=== PATIENT | male | born 1970 | race Two or more races ===

== ENCOUNTER 2017-02-16 20:58 | Emergency (ER) | payer MEDICAID ==
[~2017-02-16] VITALS: Ht 162.6 cm; Wt 78.0 kg
[2017-02-16 21:43] LABS: Basophils # (auto) 0.1 uL; Basophils % (auto) 0.7 % (0.0-2.0); Eosinophils # (auto) 0.3 uL; Hematocrit 41.7 % (41.0-53.0); Hemoglobin 14.7 g/dL (13.5-17.5); Lymphocytes % (auto) 26.2 % (10.0-50.0); Mean Corpuscular Hemoglobin 30.8 pg (28.0-32.0); Mean Corpuscular Hgb Conc. 35.2 g/dL (32.0-36.0); Mean Corpuscular Volume 87.7 fL (80.0-100.0); Mean Platelet Volume 8.1 fL (6.9-10.8); Monocytes # (auto) 0.8 uL; Monocytes % (auto) 10.4 % (0.0-12.0); Neutrophils # (auto) 4.4 uL; Neutrophils % (auto) 58.7 % (37.0-80.0); Nucleated Red Blood Cells % 0.1 %; Platelet Count (auto) 193 10^3/uL (140-450); Red Cell Distribution Width 12.8 % (11.8-14.3); White Blood Cell 7.6 10^3/uL (4.4-10.8)
[2017-02-16 21:50] LABS: Acetaminophen < 2.0 ug/mL (10-30); Salicylate < 1.7 mg/dL (2.8-20.0)
[2017-02-16 21:55] LABS: Albumin 3.7 g/dL (3.4-5.0); Alkaline Phosphatase 82 U/L (45-117); Anion Gap 5 (5-15); Aspartate Aminotransferase 17 U/L (15-37); BUN/Creatinine Ratio 16.3; Bilirubin, Total 0.3 mg/dL (0.2-1.0); Blood Urea Nitrogen 17 mg/dL (7-18); Calcium 8.1 mg/dL (8.5-10.1); Carbon Dioxide 28 mmol/L (21-32); Chloride 107 mmol/L (98-107); GFR African American 98 mL/min; GFR Non-African American 81 mL/min; Glucose 90 mg/dL (74-106); Potassium 3.9 mmol/L (3.5-5.1); Sodium 140 mmol/L (136-145); Total Protein 7.6 g/dL (6.4-8.2)
[2017-02-17] MEDS ORDERED: methylPREDNISolone SOD SUCC 125 MG/2 ML VL IV ONE (00:45)
[2017-02-17 02:46] VITALS: BP 132/89
== END 2017-02-17 02:46 | disposition home or self-care (01) ==
LOC: ER 21:02
DX: G51.0 Bell's palsy (principal)
CPT/HCPCS: 36415; 70450; 80053; 80307; 80320; 80329; 84484; 85025; 93005; 96374; 99285; J2930

== ENCOUNTER 2020-01-13 19:37 | Inpatient (IN) | payer MEDICAID ==
[~2020-01-13] VITALS: Ht 170.2 cm; Wt 76.3 kg
[~2020-01-13 19:37] MED LIST: SULF400I3 PO
[2020-01-13] MEDS ORDERED: ZINC SULFATE 220mg CAP or TAB PO ONE (19:45)
[2020-01-13] MEDS ORDERED: ASCORBIC ACID 500 MG TAB PO ONE (19:45)
[2020-01-13] MEDS ORDERED: PANTOPRAZOLE 40 MG/10 ML VIAL INJ IV ONE (19:45)
[2020-01-13] MEDS ORDERED: AZITHROMYCIN 500MG/ 250ML 250 ML IV ONE (19:45)
[2020-01-13] MEDS ORDERED: methylPREDNISolone SOD SUCC 125 MG/2 ML VL IV ONE (19:45)
[2020-01-13 20:45] LABS: Basophils # (auto) 0 10 ^3/uL (0-0.2); Basophils % (auto) 0.2 % (0.0-2.0); Eosinophils # (auto) 0 10 ^3/uL (0-0.8); Eosinophils % (auto) 0.1 % (0.0-7.0); Hematocrit 45.5 % (41.0-53.0); Hemoglobin 14.8 g/dL (13.5-17.5); Lymphocytes # (auto) 0.8 10 ^3/uL (0.4-5.4); Lymphocytes % (auto) 4.9 % (10.0-50.0); Mean Corpuscular Hemoglobin 28.3 pg (28.0-32.0); Mean Corpuscular Hgb Conc. 32.4 g/dL (32.0-36.0); Mean Corpuscular Volume 87.3 fL (80.0-100.0); Monocytes # (auto) 0.9 10 ^3/uL (0-1.3); Monocytes % (auto) 5.7 % (0.0-12.0); Neutrophils # (auto) 14.4 10 ^3/uL (1.6-8.6); Neutrophils % (auto) 89.1 % (37.0-80.0); Platelet Count (auto) 223 10^3/uL (140-450); Red Blood Cells 5.22 10^6/uL (4.5-5.90); Red Cell Distribution Width 13.1 % (11.8-14.3); White Blood Cell 16.2 10^3/uL (4.4-10.8)
[2020-01-13] MEDS ORDERED: ACETAMINOPHEN 325 MG TAB PO ONE (20:45)
[2020-01-13 20:52] LABS: Albumin 2.9 g/dL (3.4-5.0); Anion Gap 8 (5-15); Blood Urea Nitrogen 10 mg/dL (7-18); Calcium 8.4 mg/dL (8.5-10.1); Carbon Dioxide 26 mmol/L (21-32); Chloride 102 mmol/L (98-107); Glucose 119 mg/dL (74-106); Potassium 3.6 mmol/L (3.5-5.1); Sodium 136 mmol/L (136-145)
[2020-01-13 21:01] LABS: Alanine Aminotransferase 140 U/L (16-61); Alkaline Phosphatase 145 U/L (45-117); Aspartate Aminotransferase 53 U/L (15-37); BUN/Creatinine Ratio 9.9; Bilirubin, Total 0.9 mg/dL (0.2-1.0); GFR African American 100 mL/min; GFR Non-African American 83 mL/min; Lactate Dehydrogenase 195 U/L (87-241)
[2020-01-13 21:03] LABS: CRP High Sensitivity > 19.0 mg/dL (< 0.3)
[2020-01-13] MEDS ORDERED: SODIUM CHLORIDE 0.9% 1,000 ML IV SCH (21:56)
[2020-01-13] MEDS ORDERED: ONDANSETRON HCL 4 MG/2 ML VIAL IV PRN (22:00)
[2020-01-13] MEDS ORDERED: DOCUSATE SOD 100 MG CAP PO PRN (22:00)
[2020-01-13] MEDS ORDERED: ACETAMINOPHEN 500 MG TAB PO PRN (22:00)
[2020-01-13] MEDS ORDERED: MORPHINE SULF INJ 2 MG/ML SYRINGE 1ML IV PRN (22:00)
[2020-01-13] MEDS ORDERED: TEMAZEPAM 15 MG CAP PO PRN (22:00)
[2020-01-13] MEDS ORDERED: LORazepam 0.5 MG TAB PO PRN (22:00)
[2020-01-13] MEDS: ALBUTEROL SULF HFA 90MCG INH 200DOSE IN SCH (22:00)
[2020-01-13] MEDS ORDERED: HYDROcodone-ACET 5/325MG TAB PO PRN (22:00)
[2020-01-13] MEDS ORDERED: ACETAMINOPHEN 325 MG TAB PO PRN (22:00)
[2020-01-13] MEDS: DOXYCYCLINE 100 MG TAB/CAP PO SCH (22:40)
[2020-01-14] VITALS (7 sets, daily range): BP systolic 113–127; BP diastolic 79–95
--- NOTE | 2020-01-14 00:30 | NUR ---
MS admit from ER TODD MAURER admitted to tele/MS after SBAR received. Patient oriented to REGINE SLATER, RN primary RN, unit, room, bed, and unit policies regarding patient care and visiting hours.Patient on 4L NC sating at 895%. Patient weighed by bedscale and encouraged to call if they need something. All questions and concerns addressed, patient verbalized understanding.
--- NOTE | 2020-01-14 00:50 | NUR ---
Lab Called Patient is Covid positive. patient no made aware yet
[2020-01-14] MEDS: ALBUTEROL SULF HFA 90MCG INH 200DOSE IN SCH ×4 (06:00→21:46)
--- NOTE | 2020-01-14 06:16 | NUR ---
Respiratory note: SCHEDULE MDI TX NOT GIVEN AT THIS TIME. PHARMACY NOTIFY TO GET INHALER FOR PT .
[2020-01-14 07:19] LABS: Basophils # (auto) 0 10 ^3/uL (0-0.2); Basophils % (auto) 0.1 % (0.0-2.0); Eosinophils # (auto) 0 10 ^3/uL (0-0.8); Hematocrit 44.5 % (41.0-53.0); Hemoglobin 15.1 g/dL (13.5-17.5); Lymphocytes # (auto) 0.4 10 ^3/uL (0.4-5.4); Lymphocytes % (auto) 3.8 % (10.0-50.0); Mean Corpuscular Hemoglobin 29.2 pg (28.0-32.0); Mean Corpuscular Hgb Conc. 33.8 g/dL (32.0-36.0); Mean Corpuscular Volume 86.4 fL (80.0-100.0); Monocytes # (auto) 0.2 10 ^3/uL (0-1.3); Monocytes % (auto) 2.2 % (0.0-12.0); Neutrophils # (auto) 10.2 10 ^3/uL (1.6-8.6); Neutrophils % (auto) 93.9 % (37.0-80.0); Platelet Count (auto) 237 10^3/uL (140-450); Red Blood Cells 5.15 10^6/uL (4.5-5.90); Red Cell Distribution Width 12.9 % (11.8-14.3); White Blood Cell 10.8 10^3/uL (4.4-10.8)
[2020-01-14 07:31] LABS: Albumin 2.8 g/dL (3.4-5.0); Calcium 8.7 mg/dL (8.5-10.1); Magnesium 2.4 mg/dL (1.6-2.6); Potassium 4.1 mmol/L (3.5-5.1)
[2020-01-14 07:37] LABS: Bilirubin, Total 0.6 mg/dL (0.2-1.0)
[2020-01-14] MEDS ORDERED: ENOXAPARIN SOD 40 MG/0.4 ML SYRINGE SC SCH (10:00)
[2020-01-14] MEDS: ASCORBIC ACID 1,000 MG TAB PO SCH (10:06)
[2020-01-14] MEDS: DOXYCYCLINE 100 MG TAB/CAP PO SCH ×2 (10:06→21:59)
[2020-01-14] MEDS: DexAMETHasone SOD PHOS 10MG/1ML VIAL INJ IV SCH (10:06)
[2020-01-14] MEDS: ZINC SULFATE 220mg CAP or TAB PO SCH (10:07)
--- NOTE | 2020-01-14 11:19 | NUR ---
Consult Est energy needs 8123-2663 kcal (23-25 kcal/kg BW 77.5kg) Est protein needs 62-78g (0.8-1g/kg BW 77.5kg) WIll reassess prn. Addendum: 01/14/20 at [address] Amended: Links added.
--- NOTE | 2020-01-14 11:23 | NUR ---
MD Toro aware of patient's status. Patient states he wants to think about stating Plaquenil at this time. MD Provided with EKG's taken to review results. No acute distress or sob noted at this time. Patient states overall feeling better and denies sob at this time currently on 4L n/c. Awaiting new orders. Cont care
[2020-01-14] MEDS ORDERED: POTASSIUM CHL 20 Meq TABLET PO ONE (11:45)
[2020-01-14] MEDS ORDERED: FUROSEMIDE 40 MG/4 ML VIAL IV ONE (11:45)
--- NOTE | 2020-01-14 14:28 | NUR ---
Patient refusing Plaquenil states that he would not like to have that as part of the treatment and just wants to continue with what he's currently getting. MD Toro paged to notify. Cont care
--- NOTE | 2020-01-14 19:00 | NUR ---
Opening Shift Note Assumed care of patient, awake and alert. No S/S of distress/SOB or pain. Patient on 4L NC. Patient safety measures in place bed in lowest position, side rails up x2, and call light within reach. Instructed on POC and to call for assist PRN, will continue to monitor for changes Q1hr and PRN.
[2020-01-14] MEDS: BUDESONIDE (INHALATION) 180 MCG IH IN SCH (21:46)
--- NOTE | 2020-01-14 21:47 | NUR ---
Respiratory note: INCREASED FIO2 TO 6L NC AT THIS TIME TO ACHIEVE A PULSE OX SAT IF 91%
[2020-01-14] MEDS: ENOXAPARIN SOD 80 MG/0.8ML SYRINGE SC SCH (21:59)
[2020-01-15] VITALS (9 sets, daily range): BP systolic 119–131; BP diastolic 83–92
[2020-01-15] MEDS: ALBUTEROL SULF HFA 90MCG INH 200DOSE IN SCH ×3 (07:13→21:31)
[2020-01-15] MEDS: BUDESONIDE (INHALATION) 180 MCG IH IN SCH ×2 (07:13→21:31)
--- NOTE | 2020-01-15 07:30 | NUR ---
Opening Shift Note Assumed care of patient, awake and alert. No S/S of distress/SOB or pain. Patient is currently on 4L n/c sat 94%. Patient encouraged to use IS at bedside he verbalized understanding and returned demonstration. Instructed on POC and to call for assist PRN, will continue to monitor for changes Q1hr and PRN.
[2020-01-15 08:09] LABS: Albumin 2.7 g/dL (3.4-5.0); Calcium 8.6 mg/dL (8.5-10.1)
[2020-01-15 08:18] LABS: BUN/Creatinine Ratio 24.5; Bilirubin, Total 0.4 mg/dL (0.2-1.0); CRP High Sensitivity 10.5 mg/dL (< 0.3); Total Protein 7.8 g/dL (6.4-8.2)
[2020-01-15] MEDS: FUROSEMIDE 20 MG/2 ML VIAL IV SCH (09:41)
[2020-01-15] MEDS: ZINC SULFATE 220mg CAP or TAB PO SCH (09:42)
[2020-01-15] MEDS: DOXYCYCLINE 100 MG TAB/CAP PO SCH (09:42)
[2020-01-15] MEDS: POTASSIUM CHL 10 Meq TABLET PO SCH (09:42)
[2020-01-15] MEDS: ENOXAPARIN SOD 80 MG/0.8ML SYRINGE SC SCH ×2 (09:42→22:31)
[2020-01-15] MEDS: ASCORBIC ACID 1,000 MG TAB PO SCH (09:42)
[2020-01-15] MEDS: DexAMETHasone SOD PHOS 10MG/1ML VIAL INJ IV SCH (09:43)
--- NOTE | 2020-01-15 12:14 | NUR ---
Patient increased to 5L n/c sat 92% at this time. Patient on 4L was not greater than 89%. Patient encouraged to use IS at bedside he verbalized understanding and returned demo. No acute distress or sob noted. Call light within reach
[2020-01-15] MEDS ORDERED: DEXTROSE (50%) 50ML SYRG IV PRN (13:45)
[2020-01-15] MEDS ORDERED: PIPERACILLIN-TAZOB 3.375GM 100 ML IV ONE (13:45)
--- NOTE | 2020-01-15 14:40 | NUR ---
Consent obtained for Remdesivir and placed in chart after pt given the fact sheet. MD Barragan spoke to patient at bedside. Pt informed of potential risk/benefit, informed of alternatives to remdesivir and risk/benefit of alternatives, informed that remdesivir is an unapproved drug that is authorized for use under [facility]. Informed the patient, and at bedside, has the option to accept or refuse remdesivir. Patient agrees and required consent signed and faxed to pharmacy as requested as well. Will medicate once med is available. Cont care
--- NOTE | 2020-01-15 14:55 | NUR ---
House sup notified of T/S and blood consents/ Plasma consents signed and placed in chart. Reading sup will register patient, awaiting on Convalescent plasma transfusion at this time. Cont care
[2020-01-15] MEDS: ACCU-CHEK COMFORT CURVE STRIP VI SCH ×2 (17:07→22:27)
[2020-01-15] MEDS: InsuLIN REG 1unit/0.01ml Soln (100units/ml) SC SCH ×2 (17:18→22:28)
--- NOTE | 2020-01-15 17:38 | NUR ---
Remdesivir started bp 128/93 hr 93 patient instructed to call for s/e of meds he verbalized understanding. Cont to monitor Addendum: 01/15/20 at 1750 by Palmira Thompson RN patient is continuously monitored for duration of medication administration. VS per protocol. Tolerating well
[2020-01-15] MEDS ORDERED: REMDESIVIR 200 MG in NS 210ml LOADING DOSE ADULT IV ONE (18:00)
--- NOTE | 2020-01-15 18:38 | NUR ---
Remdesivir ended. No reactions noted. See interventions for VS. VSS. No acute distress or sob noted, cont care.
--- NOTE | 2020-01-15 19:20 | NUR ---
opening note pt is alert and oriented x4. respirations even and nonlabored on 5Lnc. pt is Kosovan speaking only. pt denies pain or discomfort at this time, will continue to monitor. pt is ambulatory. bed in low locked position, call light within reach.
--- NOTE | 2020-01-15 21:36 | NUR ---
RT NOTE PT WAS SEEN BY RT FOR MDI TX. PT TOLERATES ALBUTEROL HFA VIA SPACER AND PULMICORT FLEXHALER WELL. PT RINSED MOUTH POST TX. CONT ORDERED POX 93% ON 6L NASAL CANNULA Addendum: 01/15/20 at 2137 by Genna Dunham RT Amended: Links added.
[2020-01-16] VITALS (12 sets, daily range): BP systolic 105–126; BP diastolic 74–93
[2020-01-16] MEDS: PIPERACILLIN-TAZOB 3.375GM 100 ML IV SCH ×4 (00:08→18:34)
[2020-01-16] MEDS: ACCU-CHEK COMFORT CURVE STRIP VI SCH ×4 (06:18→22:14)
[2020-01-16] MEDS: InsuLIN REG 1unit/0.01ml Soln (100units/ml) SC SCH ×4 (06:18→22:17)
--- NOTE | 2020-01-16 07:09 | NUR ---
closing note pt resting in semi fowlers with HOB at thirty degrees. respirations even and nonlabored on 3 liters nasal cannula. no complaints of pain or discomfort at this time. endorsed care to day shift MATEUS Shearer.
[2020-01-16] MEDS: ALBUTEROL SULF HFA 90MCG INH 200DOSE IN SCH ×3 (07:26→21:59)
[2020-01-16] MEDS: BUDESONIDE (INHALATION) 180 MCG IH IN SCH ×2 (07:27→21:59)
[2020-01-16] MEDS: FUROSEMIDE 20 MG/2 ML VIAL IV SCH (09:56)
[2020-01-16] MEDS: ASCORBIC ACID 1,000 MG TAB PO SCH (09:56)
[2020-01-16] MEDS: ENOXAPARIN SOD 80 MG/0.8ML SYRINGE SC SCH ×2 (09:56→22:14)
[2020-01-16] MEDS: POTASSIUM CHL 10 Meq TABLET PO SCH (09:56)
[2020-01-16] MEDS: DexAMETHasone SOD PHOS 10MG/1ML VIAL INJ IV SCH (09:56)
[2020-01-16] MEDS: ZINC SULFATE 220mg CAP or TAB PO SCH (09:56)
--- NOTE | 2020-01-16 11:07 | NUR ---
at bedside MD Toro at bedside aware of patient's status. Patient currently on 3L n/c sat >92%. Awaiting Convalescent plasma transfusion at this time, consents signed by and development educator requested to metal pickling equipment operator from blood bank. Cont care
--- NOTE | 2020-01-16 11:33 | NUR ---
Plasma started at this time. Cont to monitor at bedside closely
--- NOTE | 2020-01-16 11:48 | NUR ---
Patient tolerating transfusion well with no signs of reaction noted. Patient instructed to reports signs to primary rn he verbalized understanding. Cont care
--- NOTE | 2020-01-16 17:33 | NUR ---
Remdesivir started bp 134/92 hr 96
[2020-01-16] MEDS: REMDESIVIR 100mg in NS 230ml DAILYx4DAYS (NO VENT) IV SCH (17:35)
[2020-01-16 18:44] LABS: Urine Bacteria NONE SEEN /hpf (None Seen); Urine Blood Negative /uL (Negative); Urine Specific Gravity 1.008 (1.001-1.035); Urine WBC <1 /hpf (0 - 3)
--- NOTE | 2020-01-16 18:44 | NUR ---
Remdesevir ended pt tolerated well no signs of distress or reaction noted. VS monitored as ordered per protocol (see intervention). No distress or sob noted at this time. Cont care
--- NOTE | 2020-01-16 19:05 | NUR ---
Patient care endorsed endorsed care to Emely grant. Patient resting comfortably in bed. IS as ordered and pt noted doing it. No acute distress or sob currently on 3L n/c. Call light within reach.
--- NOTE | 2020-01-16 19:20 | NUR ---
opening note pt is alert and oriented x4. respirations even and nonlabored on 3Lnc. pt is Andorran speaking only. pt feels better today. pt denies pain or discomfort at this time, will continue to monitor. pt is ambulatory. bed in low locked position, call light within reach.
[2020-01-17] VITALS (9 sets, daily range): BP systolic 96–133; BP diastolic 74–99
[2020-01-17] MEDS: PIPERACILLIN-TAZOB 3.375GM 100 ML IV SCH ×5 (01:08→23:44)
[2020-01-17] MEDS: ACCU-CHEK COMFORT CURVE STRIP VI SCH ×4 (07:00→21:44)
[2020-01-17] MEDS: InsuLIN REG 1unit/0.01ml Soln (100units/ml) SC SCH ×4 (07:00→21:45)
[2020-01-17] MEDS: BUDESONIDE (INHALATION) 180 MCG IH IN SCH ×2 (07:13→21:50)
[2020-01-17] MEDS: ALBUTEROL SULF HFA 90MCG INH 200DOSE IN SCH ×3 (07:13→21:50)
[2020-01-17 07:33] LABS: Mean Corpuscular Hemoglobin 28.9 pg (28.0-32.0); Mean Corpuscular Hgb Conc. 33.3 g/dL (32.0-36.0); Mean Corpuscular Volume 86.9 fL (80.0-100.0); Platelet Count (auto) 315 10^3/uL (140-450); Red Blood Cells 4.83 10^6/uL (4.5-5.90); Red Cell Distribution Width 12.9 % (11.8-14.3); White Blood Cell 8.1 10^3/uL (4.4-10.8)
[2020-01-17 07:43] LABS: Albumin 2.8 g/dL (3.4-5.0); Potassium 3.9 mmol/L (3.5-5.1)
[2020-01-17 07:51] LABS: Basophils % (manual) 0 (0.0-2.0); Blast Cells 0; Eosinophils % (manual) 0 (0-7); Myelocytes % 0; Promyelocytes % 0; Reactive Lymphocytes 0
[2020-01-17 07:52] LABS: Bilirubin, Total 0.4 mg/dL (0.2-1.0); Total Protein 7.1 g/dL (6.4-8.2)
[2020-01-17 07:55] LABS: Calcium 8.4 mg/dL (8.5-10.1)
[2020-01-17 08:25] LABS: Band Neutrophils % (manual) 1; Lymphocytes % (manual) 24 (10.0-50.0); Metamyelocytes % 1; Monocytes % (manual) 10 (0-12)
[2020-01-17] MEDS: DexAMETHasone SOD PHOS 10MG/1ML VIAL INJ IV SCH (09:05)
[2020-01-17] MEDS: ENOXAPARIN SOD 80 MG/0.8ML SYRINGE SC SCH (09:06)
[2020-01-17] MEDS: POTASSIUM CHL 10 Meq TABLET PO SCH (09:06)
[2020-01-17] MEDS: FUROSEMIDE 20 MG/2 ML VIAL IV SCH (09:06)
[2020-01-17] MEDS: ZINC SULFATE 220mg CAP or TAB PO SCH (09:06)
[2020-01-17] MEDS: ASCORBIC ACID 1,000 MG TAB PO SCH (09:06)
--- NOTE | 2020-01-17 15:10 | NUR ---
Nutrition Followup Notes Pt wt is 75.2 kg Unable to speak to pt d/t pt is positive for COVID. Pt is with a Regular diet, appetite is good aeb 75% x3 PO intake per RN doc. Will continue to monitor PO status, skin status, pertinent labs and weight trends. Will f/u in 3-5 days. Est energy needs [id number] kcal (23-25 kcal/kg BW 77.5kg) Est protein needs 62-78g (0.8-1g/kg BW 77.5kg) Will reassess prn. LABS: GLUC 133 H, CA 8.4 L, ALB 2.8 L GI: Pt ahd 2 BM today per RN doc BS: 20 low risk. Refer to wound assessment report for full details. PES: Overweight r/t caloric intake in excess of needs aeb pt with a BMI of 26.8 kg/m2 Comments 1) Continue to monitor po intake, labs, skin 2) refer pt to [facility] on dc 3) continue current plan of care
--- NOTE | 2020-01-17 15:45 | NUR ---
Dr Davidson bedside with patient discussing plan of care
--- NOTE | 2020-01-17 16:09 | NUR ---
Assessment Patient is a 49-year-old male who is alert and oriented. Prior to admission patient lived with family and functioned independently. Per patient he can care for his own ADL's. Per patient he does not have any medical equipment or home oxygen. Per patient he will return home to his prior living arrangement post discharge and family will transport him home. Patient PCP is Dr. Will. Advised patient to follow up with his primary doctor after discharge. Informed patient he has a right to participate in all discharge planning. Patient verbalized understanding. Addendum: 01/17/20 at 1613 by ESTEPHANIA OWEN Amended: Links added.
[2020-01-17] MEDS: REMDESIVIR 100mg in NS 230ml DAILYx4DAYS (NO VENT) IV SCH (17:00)
--- NOTE | 2020-01-17 20:00 | NUR ---
Opening Shift Note Assumed care of patient, awake and alert x4. Patient denies pain or shortness of breath at this time. No sign/symptoms of distress noted or verbalized at this time. Instructed patient on plan of care and encouraged patient to call for assistance as needed, patient verbalized understanding. Incentive spirometer noted at the bedside. Encouraged patient to use incentive spirometer at least 10 times while awake, patient verbalized understanding and returned demonstration. Patient able to raise marker to 1000ml. Bed is locked in lowest position, side rails x 2 are up, and call light is within reach.
[2020-01-18 05:33] VITALS: BP 109/74
[2020-01-18] MEDS: PIPERACILLIN-TAZOB 3.375GM 100 ML IV SCH ×2 (05:46→11:46)
[2020-01-18] MEDS: InsuLIN REG 1unit/0.01ml Soln (100units/ml) SC SCH ×4 (05:47→22:00)
[2020-01-18] MEDS: ACCU-CHEK COMFORT CURVE STRIP VI SCH ×4 (05:47→23:18)
[2020-01-18] MEDS: ALBUTEROL SULF HFA 90MCG INH 200DOSE IN SCH ×3 (07:12→22:47)
[2020-01-18] MEDS: BUDESONIDE (INHALATION) 180 MCG IH IN SCH ×2 (07:12→22:47)
[2020-01-18 08:54] VITALS: BP 116/90
[2020-01-18] MEDS: DexAMETHasone SOD PHOS 10MG/1ML VIAL INJ IV SCH (09:33)
[2020-01-18] MEDS: POTASSIUM CHL 10 Meq TABLET PO SCH (09:34)
[2020-01-18] MEDS: FUROSEMIDE 20 MG/2 ML VIAL IV SCH (09:34)
[2020-01-18] MEDS: ZINC SULFATE 220mg CAP or TAB PO SCH (09:34)
[2020-01-18] MEDS: ASCORBIC ACID 1,000 MG TAB PO SCH (09:35)
[2020-01-18] MEDS: ENOXAPARIN SOD 40 MG/0.4 ML SYRINGE SC SCH (09:35)
[2020-01-18 13:02] VITALS: BP 111/84
[2020-01-18] MEDS ORDERED: AZITHROMYCIN 250 MG TAB PO ONE (16:15)
[2020-01-18 17:00] VITALS: BP 114/77
--- NOTE | 2020-01-18 17:45 | NUR ---
REMDESIVIR PRE-INFUSION VS BP: 124/89 HR: 84 SPO2: 97%
[2020-01-18] MEDS: REMDESIVIR 100mg in NS 230ml DAILYx4DAYS (NO VENT) IV SCH (17:57)
--- NOTE | 2020-01-18 18:00 | NUR ---
REMDESIVIR 15 MIN INFUSION VS BP: 114/84 HR: 96 SPO2: 96% NO S/S OF SOB/DISTRESS NOTED. WILL CONTINUE TO MONITOR.
--- NOTE | 2020-01-18 18:50 | NUR ---
REMDESIVIR POST INFUSION VS BP: 91/62 HR: 84 SPO2: 97% NO S/S OF SOB/DISTRESS NOTED. WILL CONTINUE TO MONITOR.
--- NOTE | 2020-01-18 20:00 | NUR ---
Opening Shift Note Assumed care of patient, awake and alert x4. Patient denies pain or shortness of breath at this time. No sign/symptoms of distress noted or verbalized at this time. Instructed patient on plan of care and encouraged patient to call for assistance as needed, patient verbalized understanding. Incentive spirometer noted at the bedside. Encouraged patient to use incentive spirometer at least 10 times while awake, patient verbalized understanding. Bed is locked in lowest position, side rails x 2 are up, and call light is within reach.
[2020-01-18 21:56] VITALS: BP 109/80
[2020-01-19 05:00] VITALS: BP 117/93
[2020-01-19] MEDS: ACCU-CHEK COMFORT CURVE STRIP VI SCH ×4 (06:30→21:56)
[2020-01-19] MEDS: InsuLIN REG 1unit/0.01ml Soln (100units/ml) SC SCH ×4 (06:30→22:00)
[2020-01-19 06:43] LABS: Potassium 4.6 mmol/L (3.5-5.1)
[2020-01-19 06:49] LABS: Albumin 2.9 g/dL (3.4-5.0); BUN/Creatinine Ratio 23.7; Calcium 8.9 mg/dL (8.5-10.1)
[2020-01-19 06:52] LABS: Bilirubin, Total 0.4 mg/dL (0.2-1.0); Total Protein 7.3 g/dL (6.4-8.2)
[2020-01-19] MEDS: BUDESONIDE (INHALATION) 180 MCG IH IN SCH ×2 (06:58→22:11)
[2020-01-19] MEDS: ALBUTEROL SULF HFA 90MCG INH 200DOSE IN SCH ×3 (06:58→22:11)
--- NOTE | 2020-01-19 07:35 | NUR ---
OPENING NOTE ASSUMED CARE OF PT. ALERT AND ORIENTED. NO S/S OF SOB/DISTRESS. BED SET TO LOWEST POSITION/LOCKED, BEDSIDE RAILS UP X2, CALL LIGHT WITHIN REACH. INSTRUCTED PT TO CALL FOR ASSISTANCE. UPDATED POC. PATIENT VERBALIZED UNDERSTANDING. WILL CONTINUE TO MONITOR Q1HR AND PRN.
[2020-01-19 08:47] VITALS: BP 117/86
[2020-01-19] MEDS: DexAMETHasone SOD PHOS 10MG/1ML VIAL INJ IV SCH (10:40)
[2020-01-19] MEDS: FUROSEMIDE 20 MG/2 ML VIAL IV SCH (10:46)
[2020-01-19] MEDS: ZINC SULFATE 220mg CAP or TAB PO SCH (10:46)
[2020-01-19] MEDS: ASCORBIC ACID 1,000 MG TAB PO SCH (10:47)
[2020-01-19] MEDS: AZITHROMYCIN 250 MG TAB PO SCH (10:47)
[2020-01-19] MEDS: POTASSIUM CHL 10 Meq TABLET PO SCH (10:47)
[2020-01-19] MEDS: ENOXAPARIN SOD 40 MG/0.4 ML SYRINGE SC SCH (10:47)
[2020-01-19 13:01] VITALS: BP 122/93
[2020-01-19 16:58] VITALS: BP 124/99
[2020-01-19] MEDS: REMDESIVIR 100mg in NS 230ml DAILYx4DAYS (NO VENT) IV SCH (17:00)
--- NOTE | 2020-01-19 17:00 | NUR ---
REMDESIVIR PRE-INFUSION VS BP: 124/94 [facility] HR: 99 BPM SPO2: 96%
--- NOTE | 2020-01-19 17:15 | NUR ---
REMDESIVIR 15 MIN INFUSION VS BP: 116/82 [facility] HR: 93 BPM SPO2: 95% NO S/S OF SOB/DISTRESS NOTED. WILL CONTINUE TO MONITOR.
--- NOTE | 2020-01-19 18:05 | NUR ---
REMDESIVIR POST INFUSION VS BP: 93/66 [facility] HR: 109 BPM SPO2: 95% NO S/S OF SOB/DISTRESS NOTED. WILL CONTINUE TO MONITOR.
[2020-01-19 19:18] VITALS: BP 124/99
[2020-01-19 22:00] VITALS: BP 118/86
[2020-01-20 05:00] VITALS: BP_DIAS 117
[2020-01-20] MEDS: InsuLIN REG 1unit/0.01ml Soln (100units/ml) SC SCH ×3 (06:04→17:00)
[2020-01-20] MEDS: ACCU-CHEK COMFORT CURVE STRIP VI SCH ×3 (06:04→17:00)
[2020-01-20] MEDS: ALBUTEROL SULF HFA 90MCG INH 200DOSE IN SCH ×2 (07:18→14:34)
[2020-01-20] MEDS: BUDESONIDE (INHALATION) 180 MCG IH IN SCH (07:18)
--- NOTE | 2020-01-20 07:30 | NUR ---
Assumed care of patient Patient awake and alert. Denied pain. No distress noted, respirations relaxed and even. Updated on POC. Educated patient on hospital safety policies, patient verbalized understanding. Bed in lowest position, wheels locked, call light within reach and bed alarm on. Will continue to monitor.
[2020-01-20] MEDS: AZITHROMYCIN 250 MG TAB PO SCH (08:58)
[2020-01-20] MEDS: POTASSIUM CHL 10 Meq TABLET PO SCH (08:58)
[2020-01-20] MEDS: ZINC SULFATE 220mg CAP or TAB PO SCH (08:58)
[2020-01-20] MEDS: ASCORBIC ACID 1,000 MG TAB PO SCH (08:59)
[2020-01-20] MEDS: ENOXAPARIN SOD 40 MG/0.4 ML SYRINGE SC SCH (08:59)
[2020-01-20 09:00] VITALS: BP 126/82
[2020-01-20] MEDS: DexAMETHasone SOD PHOS 10MG/1ML VIAL INJ IV SCH (09:04)
[2020-01-20] MEDS: FUROSEMIDE 20 MG/2 ML VIAL IV SCH (09:06)
--- NOTE | 2020-01-20 12:46 | NUR ---
Nutrition Followup Notes Pt wt is 75.2 kg Unable to speak to pt d/t pt is positive for COVID. Pt is with a Regular diet, appetite is good aeb 75% x3 PO intake per RN doc. Est energy needs 2514-0803 kcal (23-25 kcal/kg BW 77.5kg) Est protein needs 62-78g (0.8-1g/kg BW 77.5kg) Will reassess prn. LABS: No new labs today POC GLU 113 H GI: Pt had 1 BM on 01/18 per RN doc BS: 20 low risk. Refer to wound assessment report for full details. PES: Overweight r/t caloric intake in excess of needs aeb pt with a BMI of 26.8 kg/m2 Comments 1) Continue to monitor po intake, labs, skin 2) refer pt to [facility] on dc 3) continue current plan of care. F/u mod 3-5 days
[2020-01-20 13:00] VITALS: BP 127/89
[2020-01-20] MEDS ORDERED: DOXY-286 PO (13:37)
[2020-01-20] MEDS ORDERED: POTA1TAB61 PO (13:37)
[2020-01-20] MEDS ORDERED: ASCO10003 PO (13:37)
[2020-01-20] MEDS ORDERED: METH4PAK PO (13:37)
[2020-01-20] MEDS ORDERED: FURO1TAB33 PO (13:37)
[2020-01-20] MEDS ORDERED: ZINC220T6 PO (13:37)
--- NOTE | 2020-01-20 15:44 | NUR ---
1540 01/20/20 - Faxed to [facility] at [phone] face sheet, order for DME home oxygen, H/P, discharge summary, order also sent to [facility]. Pending review, authorization and delivery of DME to bedside.
--- NOTE | 2020-01-20 15:56 | NUR ---
D/C planning Regarding social service consult home oxygen at 2l/min. Faxed clinical information to [facility] requesting for them to deliver portable oxygen to front lobby and concentrate oxygen to home. JULIUS Peacock will obtain authorization from [employer] [facility]. Per Norm with [facility] they will deliver portable oxygen between 16:00-18:00 and concentrate oxygen to home. MATEUS Tejada was informed.
[2020-01-20 17:00] VITALS: BP 118/82
--- NOTE | 2020-01-20 19:14 | NUR ---
ENDORSED CARE TO NIGHT RN. PATIENT DISCAHREGED. HOME O2 ARRIVED AT THE HOME AT 1800. PRESCRIPTIONS TO BE PICKED UP FROM [facility].
--- NOTE | 2020-01-20 20:49 | NUR ---
patient discharged patient discharged. patient was reeducated on discharge paperwork given to him by daysdustin guillen. patient verbalized understanding of paper work and to follow up with primary care provider. Patient verbalized understanding of medications prescribed by md. patient oxygen at bedside patient verbalized understanding on how to use oxygen and taken with patient belongings. patient concentrator delivered home. patient discharged with no signs of sob distress or pain.Iv discontinued and telemonitor discontinued by daysdustin guillen whom returned telebox.
== END 2020-01-20 20:49 | disposition home or self-care (01) | DRG 720 ==
LOC: ER 19:37 → EDBD 19:37 → OVERFLOW 19:38 → TELE-EAST 23:50
PROVIDERS: ADMIT Hospitalist; ATTEND Internal Medicine
PROC: XW033E5 Introduction of Remdesivir Anti-infective into Peripheral Vein, Percutaneous Approach, New Technology Group 5 (ICD-10-PCS; principal; 2020-01-15)
PROC: XW13325 Transfusion of Convalescent Plasma (Nonautologous) into Peripheral Vein, Percutaneous Approach, New Technology Group 5 (ICD-10-PCS; 2020-01-16)
PROC: 30233K1 Transfusion of Nonautologous Frozen Plasma into Peripheral Vein, Percutaneous Approach (ICD-10-PCS; 2020-01-16)
DX: A41.89 Other specified sepsis (principal); U07.1 COVID-19; E66.3 Overweight; E78.5 Hyperlipidemia, unspecified; J12.89 Other viral pneumonia; J96.01 Acute respiratory failure with hypoxia; Z83.3 Family history of diabetes mellitus; R65.20 Severe sepsis without septic shock; Z68.26 Body mass index [BMI] 26.0-26.9, adult
CPT/HCPCS: 36415; 71045; 80053; 80061; 81001; 82728; 82962; 83036; 83605; 83615; 83735; 83880; 84443; 84484; 85007; 85025; 85027; 85379; 86141; 86850; 86900; 86901; 87040; 87086; 93005; 94640; C9113; G0378; J1100; J1815; J2543